=== PATIENT | female | born 1995 | race Caucasian/White ===

== ENCOUNTER 2018-01-10 18:35 | Emergency (ER) | payer OTHER ==
[2018-01-10 18:47] VITALS: BP 105/74; PULSE 73; TEMP 98.6; BMI 22.1
--- NOTE | 2018-01-10 19:14 | PDOC ---
History of Present Illness - General History Source: Patient Exam Limitations: No Limitations - History of Present Illness Initial Comments: 01/10/18 19:54 The patient is a 22 year old female, who presents to the emergency department with abdominal pain for the past 3 days. She describes her pain as localized in the epigastric region, rating it a 8/10 in severity and sharp in sensation. She reports that her food and liquid intake have been normal. She denies any change in dietary habits. She notes that eating at time exacerbates the pain. She denies any change in bowel movements. She denies taking anything for the pain. The patient denies chest pain, shortness of breath, headache and dizziness. Denies fever, chills, nausea, vomit, diarrhea and constipation. Denies dysuria, frequency, urgency and hematuria. PAST MEDICAL HISTORY: no significant history PAST SURGICAL HISTORY: no significant history FAMILY HISTORY: no pertinent history SOCIAL HISTORY: Pt lives with family and is employed. MEDICATIONS: reviewed General: No fevers or chills, no weakness, no weight loss HEENT: No change in vision. No sore throat,. No ear pain CardioVascular: No chest pain or shortness of breath Respiratory:No cough, or wheezing. Gastrointestinal: (+) Abdominal pain. No nausea, vomiting, diarrhea or constipation, No rectal bleeding Genitourinary: No dysuria, hematuria, or frequency Musculoskeletal: No joint or muscle pain or swelling Neurologic: No headache, vertigo, dizziness or loss of consciousness Psychiatric: nor depression Skin: No rashes or easy bruising Endocrine: no increased thirst or abnormal weight change Allergic: no skin or latex allergy All other systems reviewed and normal GENERAL: The patient is awake, alert, and fully oriented, in no acute distress. HEAD: Normal with no signs of trauma. EYES: Pupils equal, round and reactive to light, extraocular movements intact, sclera anicteric, conjunctiva clear. ABDOMEN: (+) Mild to moderate epigastric and right upper quadrant tenderness. EXTREMITIES: Normal range of motion, no edema. NEUROLOGICAL: Normal speech, normal gait. PSYCH: Normal mood, normal affect. SKIN: Warm, Dry, normal turgor, no rashes or lesions noted. <Sammy Garcia - Last Filed: 01/10/18 20:01> - General History Source: Patient Exam Limitations: No Limitations - History of Present Illness Initial Comments: A portion of this note was documented by scribe services under my direction. I have reviewed the details of the note, within reason, and agree with the documentation. The case summary and management plan written by me. Medical decision making: This is a 22-year-old female who comes in complaining of 3 days of 8 out of 10 epigastric/upper abdominal pain. Otherwise patient denies any nausea vomiting diarrhea fevers chills. Patient did indicate that it is worse when she eats but does not attribute any specific foods such as a fatty food to the pain. We'll obtain a workup including CBC, cough, lipase depending on results of workup consider a gallbladder ultrasound. We'll reassess and follow up 01/10/18 20:07 Reassessment: Patient does feel better post some Pepcid and Toradol. Results of patient's workup still pending 01/10/18 20:50 Reassessment patient symptoms have resolved. Assessment and plan: This is a 22-year-old female who comes in complaining of epigastric pain 3 days constant with gastritis. Patient had a workup that was negative for any acute pathology. Pt will be discharged home with a perscription for an h2 rupa and will follow up with her primary care doctor <Jc Pineda I - Last Filed: 01/10/18 21:26> - General Chief Complaint: Pain Stated Complaint: EPIGASTRIC PAIN Time Seen by Provider: 01/10/18 19:13 Past History <Sammy Garcia - Last Filed: 01/10/18 20:01> - Past Medical History Asthma: No Cancer: No Cardiac Disorders: No COPD: No Diabetes: No HTN: No Seizures: No Thyroid Disease: No - Suicide/Smoking/Psychosocial Hx Smoking History: Unknown if ever smoked Have you smoked in the past 12 months: No Hx Alcohol Use: No Drug/Substance Use Hx: No Hx Substance Use Treatment: No <Jc Pineda I - Last Filed: 01/10/18 21:26> - Past Medical History Allergies/Adverse Reactions: Allergies Allergy/AdvReac Type Severity Reaction Status Date / Time No Known Allergies Allergy Verified 01/10/18 18:44 Home Medications: Ambulatory Orders Omeprazole 20 mg PO DAILY #14 tablet. 01/10/18 *Physical Exam - Vital Signs Last Vital Signs Temp Pulse Resp BP Pulse Ox 98.6 F 73 18 105/74 100 01/10/18 18:35 01/10/18 18:35 01/10/18 18:35 01/10/18 18:35 01/10/18 18:35 <Sammy Garcia - Last Filed: 01/10/18 20:01> - Vital Signs Last Vital Signs Temp Pulse Resp BP Pulse Ox 98.6 F 73 18 105/74 100 01/10/18 18:35 01/10/18 18:35 01/10/18 18:35 01/10/18 18:35 01/10/18 18:35 <Jc Pineda I - Last Filed: 01/10/18 21:26> ED Treatment Course - LABORATORY CBC & Chemistry Diagram: 01/10/18 19:40 01/10/18 19:40 - Medications Given in the ED: ED Medications Discontinued Medications Generic Name Dose Route Start Last Admin Trade Name Freq PRN Reason Stop Dose Admin Famotidine 20 mg in 12 mls @ 144 mls/hr 01/10/18 19:33 01/10/18 19:51 Pepcid 20 Mg/12 Ml Push IVPUSH 01/10/18 19:37 144 mls/hr ONCE ONE Administration Ketorolac Tromethamine 30 mg 01/10/18 19:33 01/10/18 19:52 Toradol Injection - IVPUSH 01/10/18 19:34 30 mg ONCE ONE Administration <Sammy Garcia - Last Filed: 01/10/18 20:01> - LABORATORY CBC & Chemistry Diagram: 01/10/18 19:40 01/10/18 19:40 <Jc Pineda I - Last Filed: 01/10/18 21:26> *DC/Admit/Observation/Transfer - Attestations Scribe Attestion: 01/10/18 19:54 Documentation prepared by Sammy Garcia, acting as medical affairs leader for Jc Pineda MD <Sammy Garcia - Last Filed: 01/10/18 20:01> <Jc Pineda I - Last Filed: 01/10/18 21:26> Diagnosis at time of Disposition: Epigastric pain - Discharge Dispostion Disposition: HOME Condition at time of disposition: Stable - Patient Instructions Printed Discharge Instructions: Gastritis, Gastritis (Alternative Therapy) Additional Instructions: Your symptoms are most likely secondary to some acid indigestion/gastritis I sent a prescription to your pharmacy for an acid blocking medication take it once a day for 2 weeks. Follow-up with your primary care doctor in 2 weeks for reevaluation to see if you should continue the medication
[2018-01-10] MEDS ORDERED: SODIUM CHLORIDE 1,000 ML IV ONE (19:33)
[2018-01-10] MEDS ORDERED: KETOROLAC TROMETHAMINE 30 MG/1 ML VIAL IVPUSH ONE (19:33)
[2018-01-10] MEDS ORDERED: FAMOTIDINE IV 20 MG/12 ML VIAL IVPUSH ONE (19:33)
[2018-01-10] MEDS ORDERED: FAMOTIDINE 20 MG/50 ML IVPB 20 MG/50 ML MG IVPB ONE (19:36)
[2018-01-10] MEDS ORDERED: KETOROLAC TROMETHAMINE 30 MG/1 ML VIAL ONE (19:36)
[2018-01-10 20:04] LABS: BASO % 0.4 % (0-2.0); EOS % 1.2 % (0-4.5); HEMATOCRIT 35.5 % (32.4-45.2); HEMOGLOBIN 12.4 GM/dl (10.7-15.3); LYMPH % 34.2 % (8-40); MCHC 34.8 g/dl (32.0-36.0); MEAN CELL VOLUME 89.2 fl (80-96); MEAN PLT VOLUME 8.1 fl (7.5-11.1); MONO % 5.5 % (3.8-10.2); NEUT % 58.7 % (42.8-82.8); PLATELET COUNT 192 K/MM3 (134-434); RBC 3.99 M/mm3 (3.60-5.2); RDW 12.3 % (11.6-15.6); WHITE BLOOD COUNT 5.7 K/mm3 (4.0-10.8)
[2018-01-10 20:16] LABS: ALBUMIN 4.3 g/dl (3.5-5.0); ALK PHOS 48 U/L (32-92); ANION GAP 5 (8-16); BLOOD UREA NITROGEN 12 mg/dl (7-18); CALCIUM 8.9 mg/dl (8.4-10.2); CHLORIDE 107 mmol/L (98-107); CO2 26 mmol/L (22-28); GLUCOSE,RANDOM 86 mg/dl (74-106); POTASSIUM 3.8 mmol/L (3.5-5.1); SGOT/AST 17 U/L (10-42); SGPT/ALT 11 U/L (10-40); SODIUM 138 mmol/L (136-145); TOT PROT 6.7 g/dl (6.4-8.3)
[2018-01-10 20:40] LABS: CREATININE < 0.8 mg/dl (0.6-1.3)
[2018-01-10 20:41] LABS: BILIRUBIN,TOTAL < 0.5 mg/dl (0.2-1.0)
[2018-01-10 21:37] LABS: LIPASE 137 U/L (73-393)
== END 2018-01-10 21:42 | disposition home or self-care (01) ==
LOC: FER 18:35
PROC: 3E033GC Introduction of Other Therapeutic Substance into Peripheral Vein, Percutaneous Approach (ICD-10-PCS; principal; 2018-01-10)
PROC: 3E0333Z Introduction of Anti-inflammatory into Peripheral Vein, Percutaneous Approach (ICD-10-PCS; 2018-01-10)
PROC: 3E0337Z Introduction of Electrolytic and Water Balance Substance into Peripheral Vein, Percutaneous Approach (ICD-10-PCS; 2018-01-10)
DX: R10.13 Epigastric pain (principal)
CPT/HCPCS: 36415; 80053; 83690; 85025; 99282-25

== ENCOUNTER 2018-10-07 21:02 | Emergency (ER) | payer OTHER ==
[2018-10-07 21:11] VITALS: BP 130/73; PULSE 95; TEMP 99.1; BMI 21.6
--- NOTE | 2018-10-07 21:11 | PDOC ---
History of Present Illness - General History Source: Patient Exam Limitations: No Limitations - History of Present Illness Initial Comments: 10/07/18 22:25 The patient is a 33 year old female, with no significant PMH, who presents to the emergency department for evaluation of a dry cough that began last night. The patient states this morning she experienced severe sore throat pain and complains of difficulty in swallowing. The patient notes a decrease in appetite and diaphoresis on her feet. The patient mentions she has been in contact with her 3 years old son who came in 2 days ago with influenza. The patient denies chest pain, shortness of breath, headache and dizziness. Denies fever, chills, nausea, vomit, diarrhea and constipation. Allergies: NKDA Past surgical history: None reported Social history: None reported PCP: None reported <Greg Huffman - Last Filed: 10/07/18 22:27> <Donna Montero - Last Filed: 10/08/18 02:19> - General Chief Complaint: Respiratory Stated Complaint: FLU Time Seen by Provider: 10/07/18 21:08 Past History <Greg Huffman - Last Filed: 10/07/18 22:27> - Past Medical History Asthma: No Cancer: No Cardiac Disorders: No COPD: No Diabetes: No HTN: No Seizures: No Thyroid Disease: No - Suicide/Smoking/Psychosocial Hx Smoking History: Never smoked Have you smoked in the past 12 months: No Hx Alcohol Use: No Drug/Substance Use Hx: No Substance Use Type: None Hx Substance Use Treatment: No <Donna Montero - Last Filed: 10/08/18 02:19> - Past Medical History Allergies/Adverse Reactions: Allergies Allergy/AdvReac Type Severity Reaction Status Date / Time No Known Allergies Allergy Verified 01/10/18 18:44 Home Medications: Ambulatory Orders Omeprazole 20 mg PO DAILY #14 tablet. 01/10/18 Oseltamivir Phosphate [Tamiflu -] 75 mg PO ONCE #1 capsule 10/07/18 Review of Systems - Review of Systems Able to Perform ROS?: Yes Comments:: 10/07/18 22:25 GENERAL/CONSTITUTIONAL: No fever or chills. No weakness. HEAD, EYES, EARS, NOSE AND THROAT: + sore throat. No change in vision. No ear pain or discharge. CARDIOVASCULAR: No chest pain or shortness of breath. RESPIRATORY:+cough. No wheezing, or hemoptysis. GASTROINTESTINAL: No nausea, vomiting, diarrhea or constipation. GENITOURINARY: No dysuria, frequency, or change in urination. MUSCULOSKELETAL: No joint or muscle swelling or pain. No neck or back pain. SKIN: No rash NEUROLOGIC: No headache, vertigo, loss of consciousness, or change in strength/ sensation. ENDOCRINE: No increased thirst. No abnormal weight change. HEMATOLOGIC/LYMPHATIC: No anemia, easy bleeding, or history of blood clots. ALLERGIC/IMMUNOLOGIC: No hives or skin allergy. <Greg Huffman - Last Filed: 10/07/18 22:27> *Physical Exam - Vital Signs Last Vital Signs Temp Pulse Resp BP Pulse Ox 99.1 F 95 H 16 130/73 99 10/07/18 21:03 10/07/18 21:03 10/07/18 21:03 10/07/18 21:03 10/07/18 21:03 - Physical Exam Comments: 10/07/18 22:25 GENERAL: Awake, alert, and fully oriented, in no acute distress HEAD: No signs of trauma EYES: PERRLA, EOMI, sclera anicteric, conjunctiva clear ENT: +Erythema scatter fine vesicles of the posterior oropharynx. +1 enlarged tonsils. No exudate or lesion Auricles normal inspection, hearing grossly normal, nares patent. NECK: +Bilateral cervical lymphadenopathy tenderness on palpation. LUNGS:Breath sounds equal, clear to auscultation bilaterally. No wheezes, and no crackles HEART: Regular rate and rhythm, normal S1 and S2, no murmurs, rubs or gallops ABDOMEN: Soft, nontender, normoactive bowel sounds. No guarding, no rebound. No masses EXTREMITIES: Normal range of motion, no edema. No clubbing or cyanosis. No cords, erythema, or tenderness NEUROLOGICAL: Cranial nerves II through XII grossly intact. Normal speech, normal gait SKIN: Warm, Dry, normal turgor, no rashes or lesions noted. <Greg Huffman - Last Filed: 10/07/18 22:27> - Vital Signs Last Vital Signs Temp Pulse Resp BP Pulse Ox 99.1 F 95 H 16 130/73 99 10/07/18 21:03 10/07/18 21:03 10/07/18 21:03 10/07/18 21:03 10/07/18 21:03 <Donna Montero - Last Filed: 10/08/18 02:19> Moderate Sedation - Procedure Monitoring Vital Signs: Procedure Monitoring Vital Signs Temperature 99.1 F 10/07/18 21:03 Pulse Rate 95 H 10/07/18 21:03 Respiratory Rate 16 10/07/18 21:03 Blood Pressure 130/73 10/07/18 21:03 O2 Sat by Pulse Oximetry (%) 99 10/07/18 21:03 <Greg Huffman - Last Filed: 10/07/18 22:27> - Procedure Monitoring Vital Signs: Procedure Monitoring Vital Signs Temperature 99.1 F 10/07/18 21:03 Pulse Rate 95 H 10/07/18 21:03 Respiratory Rate 16 10/07/18 21:03 Blood Pressure 130/73 10/07/18 21:03 O2 Sat by Pulse Oximetry (%) 99 10/07/18 21:03 <Donna Montero - Last Filed: 10/08/18 02:19> Progress Note - Progress Note Progress Note: Documentation has been prepared under my direction and personally reviewed by me in its entirety. I attest that this documented accurately reflects all work, treatment, procedures and medical decision making performed by me. <Donna Montero - Last Filed: 10/08/18 02:19> Medical Decision Making - Medical Decision Making As noted above, this otherwise healthy 23-year-old woman presents with one-day history of sore throat and fever. Of note, patient's 3-year-old son was diagnosed 2 days ago with influenza A. No other sick contacts known. Patient does not have cough or myalgias. Exam as noted. Rapid influenza swab sent: Negative for influenza A/influenza B Patient discharged with instructions to drink plenty of fluids, to use nonsteroidal anti-inflammatories as needed for pain and to return here or see her doctor if she has persistent severe pain or high fever. 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 <Donna Montero - Last Filed: 10/08/18 02:19> *DC/Admit/Observation/Transfer - Attestations Scribe Attestion: 10/07/18 22:26 Documentation prepared by Greg Huffman, acting as medical management trainer for Donna Montero MD. <Greg Huffman - Last Filed: 10/07/18 22:27> <Donna Montero - Last Filed: 10/08/18 02:19> Diagnosis at time of Disposition: Viral pharyngitis, Exposure to influenza - Discharge Dispostion Disposition: HOME Condition at time of disposition: Stable - Prescriptions Prescriptions: Oseltamivir Phosphate [Tamiflu -] 75 mg PO ONCE #1 capsule - Referrals Referrals: Susan Price MD [Primary Care Provider] - - Patient Instructions Printed Discharge Instructions: DI for Pharyngitis/Tonsillopharyngitis -- Adult Additional Instructions: Rest; drink plenty of fluids Tamiflu 75 mg once for exposure to influenza Ibuprofen/naproxen/acetaminophen as needed for pain/fever No work until Tuesday, 10/11 Return here or see her doctor if you have worsening throat pain or persistent high fever - Post Discharge Activity Forms/Work/School Notes: Back to Work
== END 2018-10-07 23:10 | disposition home or self-care (01) ==
LOC: FER 21:02
DX: Z20.89 Contact with and (suspected) exposure to other communicable diseases (principal); J02.8 Acute pharyngitis due to other specified organisms
CPT/HCPCS: 87804; 99282-25

== ENCOUNTER 2023-04-11 07:18 | Emergency (ER) | payer OTHER ==
[2023-04-11 07:35] VITALS: TEMP 98.1; BMI 26.9
[2023-04-11] MEDS ORDERED: ACETAMINOPHEN 500 MG TABLET (FP) PO ONE (08:17)
[2023-04-11 08:26] LABS: EPI CELLS 35 /uL (0-25.1); HYALINE CASTS 0 /uL (0-3.1); PH,URINE 6.5 (5.0-8.0); URINE APPEARANCE CLEAR; URINE BACTERIA 629 /uL (0-1359); URINE BILIRUBIN NEGATIVE (NEGATIVE); URINE COLOR YELLOW; URINE GLUCOSE (UA) NEGATIVE (NEGATIVE); URINE KETONE NEGATIVE (NEGATIVE); URINE LEUK ESTERASE NEGATIVE (NEGATIVE); URINE NITRITE NEGATIVE (NEGATIVE); URINE PROTEIN NEGATIVE (NEGATIVE); URINE RBC 9 /uL (0-23.9); URINE UROBILINOGEN 0.2 mg/dL (0.2-1.0); URINE WBC 21 /uL (0-25.8)
[2023-04-11 09:40] LABS: BASO % 0.4 % (0-2.0); EOS % 0.9 % (0-4.5); HEMATOCRIT 35.6 % (32.4-45.2); HEMOGLOBIN 12.3 GM/dL (10.7-15.3); MCH 30.1 pg (25.7-33.7); MCHC 34.4 g/dl (32.0-36.0); MEAN CELL VOLUME 87.7 fl (80-96); MEAN PLT VOLUME 7.8 fl (7.5-11.1); MONO % 5.4 % (3.8-10.2); NEUT % 75.3 % (42.8-82.8); PLATELET COUNT 225 10^3/uL (134-434); RBC 4.07 M/mm3 (3.60-5.2); RDW 13.5 % (11.6-15.6); WHITE BLOOD COUNT 8.3 K/mm3 (4.0-10.0)
[2023-04-11 09:48] LABS: INR 0.93 (0.83-1.09); PROTHROMBIN TIME (PATIENT) 10.8 SEC (9.7-13.0)
[2023-04-11 09:50] LABS: ACTIVATED PTT 31.2 SECONDS (25.2-36.5)
[2023-04-11 10:06] LABS: POTASSIUM 4.4 mmol/L (3.5-5.1)
[2023-04-11 10:08] LABS: CALCIUM 8.8 mg/dL (8.5-10.1)
[2023-04-11 10:09] VITALS: BP 98/59; PULSE 66; RESP 18
[2023-04-11 10:09] LABS: ALBUMIN 3.4 g/dl (3.4-5.0); BLOOD UREA NITROGEN 7.4 mg/dL (7-18)
[2023-04-11 10:12] LABS: CREATININE 0.5 mg/dL (0.55-1.3)
[2023-04-11 10:14] LABS: BILIRUBIN,TOTAL 0.2 mg/dL (0.2-1); TOT PROT 6.9 g/dl (6.4-8.2)
[2023-04-11 12:02] LABS: EPI CELLS 28 /uL (0-25.1); HYALINE CASTS 0 /uL (0-3.1); URINE APPEARANCE CLEAR; URINE BACTERIA 625 /uL (0-1359); URINE BILIRUBIN NEGATIVE (NEGATIVE); URINE COLOR YELLOW; URINE GLUCOSE (UA) NEGATIVE (NEGATIVE); URINE KETONE NEGATIVE (NEGATIVE); URINE LEUK ESTERASE NEGATIVE (NEGATIVE); URINE NITRITE NEGATIVE (NEGATIVE); URINE PROTEIN NEGATIVE (NEGATIVE); URINE RBC 26 /uL (0-23.9); URINE UROBILINOGEN 0.2 mg/dL (0.2-1.0); URINE WBC 30 /uL (0-25.8)
== END 2023-04-11 13:07 | disposition home or self-care (01) ==
LOC: JER 07:18
DX: O20.9 Hemorrhage in early pregnancy, unspecified (principal); O26.892 Other specified pregnancy related conditions, second trimester; R10.9 Unspecified abdominal pain; O23.42 Unspecified infection of urinary tract in pregnancy, second trimester; N39.0 Urinary tract infection, site not specified; Z3A.14 14 weeks gestation of pregnancy
CPT/HCPCS: 36415; 76817-TC; 80053; 81003; 84703; 85025; 85610; 85730; 86850; 86900; 86901; 87086; 99284-25

== ENCOUNTER 2023-09-26 03:25 | Inpatient (IN) | payer OTHER ==
[2023-09-26] MEDS ORDERED: ELECTROLYTE-148 SOLN 1,000 ML IV SCH (04:30)
[2023-09-26 05:37] LABS: HEMATOCRIT 37.7 % (32.4-45.2); HEMOGLOBIN 12.4 GM/dL (10.7-15.3); MCH 30.6 pg (25.7-33.7); MEAN CELL VOLUME 92.8 fl (80-96); MEAN PLT VOLUME 8.7 fl (7.5-11.1); PLATELET COUNT 177 10^3/uL (134-434); RBC 4.06 M/mm3 (3.60-5.2); RDW 13.9 % (11.6-15.6); WHITE BLOOD COUNT 7.3 K/mm3 (4.0-10.0)
[2023-09-26 05:41] VITALS: BMI 28.3
[2023-09-26 05:46] LABS: INR 0.86 (0.83-1.09)
[2023-09-26 05:48] LABS: ACTIVATED PTT 26.9 SECONDS (25.2-36.5)
[2023-09-26 05:57] LABS: POTASSIUM 4.1 mmol/L (3.5-5.1)
[2023-09-26 06:00] LABS: BLOOD UREA NITROGEN 11.5 mg/dL (7-18); CALCIUM 8.3 mg/dL (8.5-10.1)
[2023-09-26 06:04] LABS: CREATININE 0.7 mg/dL (0.55-1.3)
[2023-09-26 06:34] LABS: ANISOCYTOSIS 1+; MACROCYTOSIS 1+; OVALOCYTE 1+; PLATELET ESTIMATE NORMAL
[2023-09-26 07:53] LABS: POC NITRAZINE POS
[2023-09-26] MEDS ORDERED: OXYTOCIN 30 UNITS in 0.9% NS 30 UNIT/500 ML INFUS.BAG IVPB SCH (10:00)
[2023-09-26] MEDS ORDERED: OXYTOCIN 30 UNITS in 0.9% NS 30 UNIT/500 ML INFUS.BAG IVPB ONE (10:24)
[2023-09-26] MEDS ORDERED: OXYTOCIN 20 UNITS in 0.9% NS 20 UNIT/1,000 ML INFUS.BAG IV ONE (12:15)
[2023-09-26] MEDS ORDERED: BENZOCAINE 28 GM HEMORRHOIDAL OINTMENT TP PRN (12:43)
[2023-09-26] MEDS ORDERED: BENZOCAINE 20% 57 GM BOTTLE TP PRN (12:43)
[2023-09-26] MEDS ORDERED: IBUPROFEN 600 MG TABLET (FP) PO PRN (12:43)
[2023-09-26] MEDS ORDERED: WITCH HAZEL 50% (TUCKS) 40 PAD/JAR PAD TP PRN (12:43)
[2023-09-26] MEDS ORDERED: BISACODYL 10 MG SUPP.RECT RC PRN (12:43)
[2023-09-26] MEDS ORDERED: ACETAMINOPHEN 325 MG TABLET (FP) PO PRN (12:43)
[2023-09-26] MEDS ORDERED: OXYTOCIN 20 UNITS in 0.9% NS 20 UNIT/1,000 ML INFUS.BAG IV SCH (12:45)
[2023-09-27 08:04] LABS: BASO % 0.4 % (0-2.0); EOS % 0.4 % (0-4.5); HEMATOCRIT 32.3 % (32.4-45.2); LYMPH % 17.4 % (8-40); MCH 31.3 pg (25.7-33.7); MCHC 34.1 g/dl (32.0-36.0); MEAN CELL VOLUME 91.6 fl (80-96); MEAN PLT VOLUME 8.5 fl (7.5-11.1); MONO % 5.2 % (3.8-10.2); NEUT % 76.6 % (42.8-82.8); PLATELET COUNT 170 10^3/uL (134-434); RBC 3.52 M/mm3 (3.60-5.2); RDW 13.8 % (11.6-15.6); WHITE BLOOD COUNT 10.4 K/mm3 (4.0-10.0)
[2023-09-27] MEDS ORDERED: SENNOSIDES/DOCUSATE COMBO (SENNA PLUS) TABLET (UD) PO PRN (22:00)
[2023-09-28 10:35] VITALS: BP 104/62; PULSE 74; RESP 17; TEMP 98
== END 2023-09-28 12:25 | disposition home or self-care (01) | DRG 560 ==
LOC: JDEL 03:25 → JLDR 04:30 → J3W 14:55
PROVIDERS: ADMIT Student in an Organized Health Care Education/Training Program; ATTEND Student in an Organized Health Care Education/Training Program
PROC: 10E0XZZ Delivery of Products of Conception, External Approach (ICD-10-PCS; principal; 2023-09-26)
PROC: 0HQ9XZZ Repair Perineum Skin, External Approach (ICD-10-PCS; 2023-09-26)
DX: O70.0 First degree perineal laceration during delivery (principal); Z3A.38 38 weeks gestation of pregnancy; Z37.0 Single live birth
CPT/HCPCS: 36415; 80048; 83986-QW; 85025; 85610; 85730; 86780; 86850; 86900; 86901